=== PATIENT | female | born 2000 | race Hispanic/Latino ===

== ENCOUNTER 2021-10-05 07:29 | Emergency (ER) | payer OTHER ==
[~2021-10-05] VITALS: Ht 160 cm; Wt 61.0 kg
[2021-10-05] MEDS ORDERED: KETOROLAC 60MG 2ML VIAL IM ONE (09:15)
[2021-10-05] MEDS ORDERED: methocarbamoL 750 MG TAB PO ONE (09:15)
[2021-10-05] MEDS ORDERED: LIDOCAINE 5% (LIDODERM) PATCH TD ONE (09:15)
[2021-10-05] MEDS ORDERED: NAPR-837 PO (10:27)
[2021-10-05] MEDS ORDERED: LIDO1PAD TOP (10:27)
[2021-10-05] MEDS ORDERED: METH-1165 PO (10:27)
[2021-10-05 10:41] VITALS: BP 123/70
[2021-10-05] MEDS ORDERED: **NOTE PATIENT COMMENT** MISC XX ONE (21:00)
== END 2021-10-05 10:47 | disposition home or self-care (01) ==
LOC: M ED 07:29
DX: M54.50 Low back pain, unspecified (principal); X50.0XXA Overexertion from strenuous movement or load, initial encounter; Y93.B3 Activity, free weights; Z79.899 Other long term (current) drug therapy
CPT/HCPCS: 72110; 96372; 99283; J1885